=== PATIENT | male | born 1980 | race Caucasian/White ===

== ENCOUNTER 2016-11-19 21:53 | Emergency (ER) | payer OTHER ==
[~2016-11-19] VITALS: Ht 170.2 cm; Wt 68.1 kg
[2016-11-20] MEDS ORDERED: ERYTHROMYCIN O3.5 GM LEFT EYE (00:40)
[2016-11-20] MEDS ORDERED: TOBREX5 ML LEFT EYE (00:40)
[2016-11-20 00:48] VITALS: BP 114/81
== END 2016-11-20 00:49 | disposition home or self-care (01) ==
LOC: EME 21:53
DX: T54.3X1A Toxic effect of corrosive alkalis and alkali-like substances, accidental (unintentional), initial encounter (principal); S05.02XA Injury of conjunctiva and corneal abrasion without foreign body, left eye, initial encounter; Y99.0 Civilian activity done for income or pay; Z77.098 Contact with and (suspected) exposure to other hazardous, chiefly nonmedicinal, chemicals
CPT/HCPCS: 99281; 99284

== ENCOUNTER 2017-07-13 19:34 | Emergency (ER) | payer OTHER ==
[~2017-07-13] VITALS: Ht 167.6 cm; Wt 66.3 kg
[~2017-07-13 19:34] MED LIST: ERYTHROMYCIN O3.5 GM LEFT EYE; TOBREX5 ML LEFT EYE
[2017-07-13 21:34] VITALS: BP 134/71
== END 2017-07-13 21:34 | disposition home or self-care (01) ==
LOC: EME 19:34
PROC: 0HQFXZZ Repair Right Hand Skin, External Approach (ICD-10-PCS; principal; 2017-07-13)
DX: S61.210A Laceration without foreign body of right index finger without damage to nail, initial encounter (principal); W25.XXXA Contact with sharp glass, initial encounter; Y92.511 Restaurant or cafe as the place of occurrence of the external cause; Y99.0 Civilian activity done for income or pay
CPT/HCPCS: 99281; 99283; S0020